=== PATIENT | female | born 1935 | race Caucasian/White ===

== ENCOUNTER 2019-04-12 18:14 | Emergency (ER) | payer OTHER ==
[~2019-04-12] VITALS: Ht 154.9 cm; Wt 61.2 kg
[2019-04-12 18:20] VITALS: BP_SYST 168
[2019-04-12] MEDS: DIPH-TET-PERTUS Vaccine 0.5 ML VIAL (ADACEL) IM ONE (18:50)
[2019-04-12] MEDS ORDERED: PRO20 PO (19:19)
[2019-04-12] MEDS: LIDOCAINE 1% 10 MG/ML, 20 ML MDV IJ ONE (19:48)
[2019-04-12] MEDS: BACITRACIN 1 GM OINT TP ONE (20:00)
[2019-04-12] MEDS: KETOROLAC TROMETHAMINE 60 MG/2 ML VIAL IM ONE (20:23)
[2019-04-12] MEDS: ONDANSETRON 4 MG ODT TAB PO ONE (20:44)
[2019-04-12 20:49] VITALS: BP_SYST 142
== END 2019-04-12 20:49 | disposition home or self-care (01) ==
LOC: SED 18:14
DX: S01.81XA Laceration without foreign body of other part of head, initial encounter (principal); E11.9 Type 2 diabetes mellitus without complications; I10 Essential (primary) hypertension; F32.9 Major depressive disorder, single episode, unspecified; W01.0XXA Fall on same level from slipping, tripping and stumbling without subsequent striking against object, initial encounter; Y93.89 Activity, other specified; Y92.89 Other specified places as the place of occurrence of the external cause; Y99.8 Other external cause status
CPT/HCPCS: 70450-TC; 72125-TC; 90715; 96372; 99284; J1885; J2001; Q0162

== ENCOUNTER 2019-04-19 15:24 | Emergency (ER) | payer OTHER ==
[~2019-04-19] VITALS: Ht 154.9 cm; Wt 61.2 kg
[2019-04-19 15:38] VITALS: BP_SYST 151
[2019-04-19] MEDS: BACITRACIN 1 GM OINT TP ONE (16:00)
[2019-04-19 16:20] VITALS: BP_SYST 151
== END 2019-04-19 16:20 | disposition home or self-care (01) ==
LOC: SED 15:24
DX: S01.81XD Laceration without foreign body of other part of head, subsequent encounter (principal); E11.9 Type 2 diabetes mellitus without complications; I10 Essential (primary) hypertension; F32.9 Major depressive disorder, single episode, unspecified; E78.5 Hyperlipidemia, unspecified; W01.0XXD Fall on same level from slipping, tripping and stumbling without subsequent striking against object, subsequent encounter
CPT/HCPCS: 99282